=== PATIENT | female | born 1940 | race Caucasian/White ===

== ENCOUNTER 2020-01-19 07:01 | Day surgery (SDC) | payer OTHER, BC ==
--- NOTE | 2020-01-18 17:37 | NUR ---
RECEIVED COPY OF LAB RESULTS THAT WERE FAXED TO DR GARCIA. DR NOTED LDL WAS ELEVATED. LIPITOR 40MG DAILY WRITTEN. OK FOR PROCEDURE.
[~2020-01-19] VITALS: Ht 149.9 cm; Wt 56.7 kg
[2020-01-19] VITALS (11 sets, daily range): BP systolic 104–163; BP diastolic 45–71
--- NOTE | 2020-01-19 08:15 | NUR ---
TO CATH. LAB VIA GUERDANIELA ESCORTED WITH CATH. LAB. NURSE. NO C/O OR DISTRESS NOTED.
--- NOTE | 2020-01-19 10:30 | NUR ---
RECEIVED PATIENT POST CATH. LAB. PROCEDURE. RESTING QUIETLY WITH SOME C/O OF HER FACE BEING FLUSHED. RESP. REG. AND EVEN WITH OUT DISTRESS NOTED. NO SOB NOTED. DENIES CHEST PAIN. SIDE RAILS UP WITH CALL LIGHT WITH IN REACH. NO C/O OR DISTRESS NOTED AT THIS TIME.
--- NOTE | 2020-01-19 10:45 | NUR ---
PATIENT RESTING WHEN CHECKED. RESP. REG. AND EVEN WITH OUT DISTRESS NOTED. NO SOB NOTED. DENIES CHEST PAIN AT THIS TIME. IV FLUSHED TO KEEP IV PATENT AND PATIENT C/O PAIN AT HER IV SITE AND STATED HER THROAT FELT LIKE IT WAS GETTING TIGHTER. NO DYSPNEA NOTED. IV SITE BENIGN. DR. Lanie GARCIA CALLED AND INFORMED OF PATIENT'S C/O AND STATUS. NEW ORDERS RECEIVED. WILL CONTINUE TO OBSERVE.
--- NOTE | 2020-01-19 11:45 | NUR ---
PATIENT AMBULATES OUT OF THE BATHROOM WITH OUT ASSSIT, JAXON. WELL. PATIENT AMBULATES TO THE W/C TO GET READY FOR DISCHARGE. RESP. REG. AND EVEN WITH OUT DISTRESS NOTED. NO SOB NOTED. DENIES CHEST PAIN NOTED. NO C/O OR DISTRESS NOTED.
--- NOTE | 2020-01-19 11:46 | NUR ---
PATIENT IS RESTING QUIETLY AT THIS TIME. RESP. REG. AND EVEN WITH OUT DISTRESS NOTED. MEDICATED A/O WITH SOLUMEDROL, PEPCID AND BENADRYL. NO SOB NOTED. DENIES CHEST PAIN. RIGHT GROIN DRSG. I-C-D, NO REDNESS OR SWELLING NOTED TO SITE. FOLAEY CATHETERIS INTACT AND PATNET WITH CLEAR YELLOW URINE. PATIENT CAME OVER WITH OROZCO CATHETER INTACT AND PATENT. NO C/O OR DISTRESS NOTED.
--- NOTE | 2020-01-19 11:56 | NUR ---
PATIENT IS RESTING QUIETLY. RESP. REG. AND EVEN WITH OUT DISTRESS NOTED. NO SOB NOTED. DENIES CHEST PAIN AT THIS TIME. RIGHT GROIN DRSG. I-C-D. NO FURTHER C/O NOTED. NO DISTRESS NOTED.
--- NOTE | 2020-01-19 12:11 | NUR ---
ICE CHIPS OFFERED AND ACCEPTED. PATIENT IS TOLERATING ICE CHIPS WELL. RESP. REG. AND EVEN WITH OUT DISTRESS NOTED. NO C/O OR DISTRESS NOTED.
--- NOTE | 2020-01-19 13:15 | NUR ---
LISA IS RESTING QUIETLY. RESP. REG. AND EVEN WITH OUT DISTRESS NOTED. SKIN WARM AND DRY, COLOR WNL. LISA STATES SHE FEELS ALOT BETTER. OROZCO CATHETER DC'D AT THIS TIME WHICH YEILED 550 ML OF CLEAR YELLOW URINE. LISA TOLERATED TAKING OUT HER CATHETER WELL. NO C/O OR DISTRESS NOTED.
--- NOTE | 2020-01-19 14:35 | NUR ---
PATIENT AMBULATES TO THE BATHROOM WITH STAND-BY ASSIST, JAXON. WELL. RESP. REG. AND EVEN WITH OUT DISTRESS NOTED. NO SOB NOTED. DENIES CHEST PAIN AT THIS TIME. PATIENT VOIDED WITH OUT C/O. NO C/O DYSURIA NOTED. ASSISTED WITH GETTING PATIENT CLOTHES. PATIENT GOT DRESSED WITH OUT ANY PROBLEMS. NO C/O OR DISTRESS NOTED.
--- NOTE | 2020-01-19 14:50 | NUR ---
PATIENT IS DISCHARGED A/O VIA W/C AFTER RECIEVING INSTRUCTIONS WITH VERBAL RESPONSE OF UNDERSTANDING. HERE TO GIVE HER A RIDE HOME. NO C/O OR DISTRESS NOTED.
== END 2020-01-19 14:50 | disposition home or self-care (01) ==
LOC: CL 07:01
PROVIDERS: ATTEND Internal Medicine Cardiovascular Disease
DX: I65.22 Occlusion and stenosis of left carotid artery (principal); I77.1 Stricture of artery; Z88.8 Allergy status to other drugs, medicaments and biological substances
CPT/HCPCS: 36200; 76937; C1769; C1894; J0360; J0461; J1644; J2001; J2250; J3010; J3490; Q9967